=== PATIENT | female | born 1995 | race Caucasian/White ===

== ENCOUNTER 2018-02-26 04:56 | Day surgery (SDC) | payer OTHER ==
[2018-02-26 12:01] VITALS: BMI 23.0
[2018-02-26] MEDS ORDERED: DEXAMETHASONE SOD PHOSPHATE 4 MG/1 ML VIAL ONE (15:02)
[2018-02-26] MEDS ORDERED: LIDOCAINE HCL/PF 2% SDV 5ML VIAL ONE (15:02)
[2018-02-26] MEDS ORDERED: MIDAZOLAM HCL 2 MG/2 ML SINGLE DOSE VIAL ONE (15:02)
--- NOTE | 2018-02-26 15:36 | HP ---
History & Physical Update - History History: No Change - Physical Physical: No Change - Assessment Assessment: No Change - Plan Plan: No Change (H&P reviewed and consistent with 01/30/18 H&P Consent signed and witnessed all questions answered)
--- NOTE | 2018-02-26 15:36 | OP ---
Operative Note - Note: Operative Date: 02/26/18 Pre-Operative Diagnosis: 22yo P0 with abnormal bleeding, Uterine Polyp on the sonogram and Hymenal ring polyp Operation: Hysteroscopy, Myomectomy, Polypectomy, Hymenal ring repair Findings: 1. ~ 2cm fundal polyp 2. Fibrous tissue in the cervicofundal junction 3. Hymenal ring polyp - 3cm Post-Operative Diagnosis: Same as Pre-op Surgeon: Shayy Maria Anesthesia: MAC Specimens Removed: 1. Endometrial fibroid and polyp. 2. Hymenal ring polyp Estimated Blood Loss (mls): 5 Drains & Tubes with Location: Fluid deficit 100cc Drains, Volume Out (mls): 200 Fluid Volume Replaced (mls): 600 Operative Report Dictated: Yes
[2018-02-26] MEDS ORDERED: IBUPROFEN 800 MG/8 ML IJ IVPB PRN (15:37)
[2018-02-26] MEDS ORDERED: ONDANSETRON 4 MG/2 ML VIAL IVPUSH PRN (15:37)
[2018-02-26] MEDS ORDERED: IBUPROFEN 600 MG TABLET (FP) PO PRN (15:37)
[2018-02-26] MEDS ORDERED: oxyCODONE HCL 5 MG TABLET PO PRN ×2 (15:37→16:41)
[2018-02-26] MEDS ORDERED: ELECTROLYTE-148 SOLN 1,000 ML IV SCH (15:45)
[2018-02-26] MEDS ORDERED: KETOROLAC TROMETHAMINE 30 MG/1 ML VIAL ONE (16:30)
[2018-02-26] MEDS ORDERED: BACITRACIN 15 GM TUBE TOPICAL OINTMENT ONE (16:37)
[2018-02-26] MEDS ORDERED: LACTATED RINGERS SOLUTION 1,000 ML IV SCH (16:45)
[2018-02-26 19:36] VITALS: BP 109/64; PULSE 82; TEMP 98.7
--- NOTE | 2018-02-27 08:45 | OP ---
DATE OF OPERATION: 02/26/2018 PREOPERATIVE DIAGNOSIS: A 22-year-old, para 0, with abnormal bleeding, uterine polyp on sonogram, and hymenal ring polyp. OPERATION: Hysteroscopy, myomectomy, polypectomy, and hymenal ring repair. FINDINGS: A 2-cm fundal endometrial polyp, fibrous tissue in the cervical- fundal junction, hymenal ring 3-cm polyp. POSTOPERATIVE DIAGNOSIS: A 22-year-old, para 0, with abnormal bleeding, uterine polyp on sonogram, and hymenal ring polyp. SURGEON: Shayy Maria MD ANESTHESIA: MAC. ANESTHESIOLOGIST: Hamida Wright CRNA SPECIMENS REMOVED: 1. Endometrial fibroid and polyp. 2. Hymenal ring polyp. DESCRIPTION OF OPERATIVE PROCEDURE: After assuring informed consent, the patient was brought to the operating room where she was placed in dorsal lithotomy position. Perineum and vagina were prepped and draped in the sterile fashion. Anterior cervical lip was visualized with the use of Gardinre retractors, was grasped with single-toothed tenaculum and cervix was gradually dilated with increasing large DeLee dilators. The last size was 17 to accommodate a 6.3-mm hysteroscope, which was introduced into the uterine cavity without difficulty. Fundal 2-cm polyp, as described, was noted. The resection device was introduced through the hysteroscope and after some difficulty with distention, eventually the intrauterine contents were visualized. A resectoscope was activated and polyp was removed as well as the fibrous tissue resembling fibroid at the cervical-fundal junction was removed as well. Subsequently, the instrument was removed from the uterus and attention was paid to the hymenal ring, which had approximately 3-cm polypoid tissue, which was resected with a scalpel. The cut line was repaired with 3-0 Vicryl in the interrupted 3 sutures. Excellent hemostasis was achieved. All instruments and sponges were removed from the cervix and vagina. The patient was placed in the dorsal supine position. Estimated blood loss was 5 mL. Patient drained 200 mL of urine and received 600 mL of IV fluids and the fluid deficit during the procedure was 100 mL. The patient was brought to the recovery room in stable condition after sponge and instrument counts were correct x2. Sarah [id number] MTDMichaela
--- NOTE | 2018-02-28 19:26 | PATH ---
Surgical Pathology Report Patient Name: ANTONIETA ACOSTA [facility]. Rec. #: [id number] /Age/Gender: 1995 (Age: 22) / F Account: [id number] Location: [facility] SURGICAL Taken: 02/26/2018 Received: 02/27/2018 Reported: 02/28/2018 Physicians: Shayy Maria M.D. Specimen(s) Received A: ENDOMETRIAL POLYP/ ENDOMETRIAL FIBROID B: EXCESSIVE HYMENAL RING Clinical History Menorrhagia Final Diagnosis A. ENDOMETRIAL POLYPS/ENDOMETRIAL FIBROID, EXCISION: FRAGMENTS OF ENDOMETRIAL POLYP. FRAGMENTS OF SMOOTH MUSCLE BUNDLES, CONSISTENT WITH SUBMUCOSAL LEIOMYOMA. B. EXCESSIVE HYMENAL RING, EXCISION: POLYPOID FIBROVASCULAR TISSUE WITH OVERLYING SQUAMOUS EPITHELIUM, CONSISTENT WITH HYMENAL POLYP. Electronically Signed Dax Hudson M.D. Gross Description A. Received in formalin labeled "endometrial polyps/endometrial fibroid," is a 2.8 x 2.6 x 0.3 cm aggregate of bryant soft tissue fragments. The formalin is filtered and the specimen is entirely submitted in one cassette. B. Received in formalin labeled "excessive hymenal ring," is a 1.8 x 0.6 x 0.2 cm bryant, polypoid portion of skin. The base is inked blue and the specimen is submitted in toto in one cassette. /02/27/2018 saudi02/27/2018
== END 2018-02-26 19:15 | disposition home or self-care (01) ==
LOC: JASU-SURG 04:56
PROVIDERS: ATTEND Obstetrics & Gynecology
PROC: 0UJD8ZZ Inspection of Uterus and Cervix, Via Natural or Artificial Opening Endoscopic (ICD-10-PCS; 2018-02-26)
PROC: 0UBC7ZX Excision of Cervix, Via Natural or Artificial Opening, Diagnostic (ICD-10-PCS; principal; 2018-02-26 13:00)
PROC: 0UB97ZX Excision of Uterus, Via Natural or Artificial Opening, Diagnostic (ICD-10-PCS; 2018-02-26 13:00)
DX: N93.9 Abnormal uterine and vaginal bleeding, unspecified (principal); N84.0 Polyp of corpus uteri; N89.8 Other specified noninflammatory disorders of vagina
CPT/HCPCS: 88304-TC; 88305-TC; 94760

== ENCOUNTER 2020-05-11 13:34 | Emergency (ER) | payer OTHER ==
[2020-05-11 13:43] VITALS: BP 118/75; PULSE 75; TEMP 98.6; BMI 25.7
[2020-05-11] MEDS ORDERED: KETOROLAC TROMETHAMINE 30 MG/1 ML VIAL IM ONE (14:21)
[2020-05-11] MEDS ORDERED: KETOROLAC TROMETHAMINE 30 MG/1 ML VIAL ONE (14:23)
== END 2020-05-11 15:20 | disposition home or self-care (01) ==
LOC: JERFT 13:34
PROC: 3E023GC Introduction of Other Therapeutic Substance into Muscle, Percutaneous Approach (ICD-10-PCS; principal; 2020-05-11)
DX: S99.921A Unspecified injury of right foot, initial encounter (principal); W19.XXXA Unspecified fall, initial encounter
CPT/HCPCS: 73630-TC-RT-FY; 99284-25

== ENCOUNTER 2020-07-18 20:15 | Emergency (ER) | payer OTHER ==
[2020-07-18 20:28] VITALS: TEMP 99.1
[2020-07-18 20:33] VITALS: BMI 26.5
[2020-07-18 22:40] VITALS: BP 110/62; PULSE 88
== END 2020-07-18 22:39 | disposition home or self-care (01) ==
LOC: JER 20:15
DX: Z03.821 Encounter for observation for suspected ingested foreign body ruled out (principal)
CPT/HCPCS: 93005; 93010; 99283-25

== ENCOUNTER 2023-02-21 23:47 | Emergency (ER) | payer OTHER ==
[2023-02-21 23:52] VITALS: BP 100/67; PULSE 98; RESP 20; TEMP 99.4; BMI 26.5
[2023-02-22] MEDS ORDERED: ACETAMINOPHEN 500 MG TABLET (FP) PO ONE (00:27)
[2023-02-22] MEDS ORDERED: IBUPROFEN 600 MG TABLET (FP) PO ONE ×2 (00:53→01:25)
== END 2023-02-22 01:29 | disposition home or self-care (01) ==
LOC: JER 23:47
DX: M25.562 Pain in left knee (principal); S86.912A Strain of unspecified muscle(s) and tendon(s) at lower leg level, left leg, initial encounter; M76.30 Iliotibial band syndrome, unspecified leg; V00.838A Other accident with motorized mobility scooter, initial encounter; Y92.410 Unspecified street and highway as the place of occurrence of the external cause
CPT/HCPCS: 73562-TC-LT-FY; 99283-25

== ENCOUNTER 2024-08-17 14:03 | Emergency (ER) | payer OTHER ==
[2024-08-17 14:13] VITALS: TEMP 99.1; BMI 26.5
[2024-08-17 15:40] LABS: ABSOLUTE IMMATURE GRANULOCYTES 0.03 x10^3/uL (0.0-0.031); BASOPHILS # 0.06 x10^3/uL (0.01-0.08); EOSINOPHIL % 0.3 % (0.7-5.8); EOSINOPHILS # 0.03 x10^3/uL (0.04-0.36); MCHC 32.8 g/dl (32.2-35.5); MEAN CELL VOLUME 98.1 fl (79.4-94.8); MEAN PLT VOLUME 8.7 fl (9.4-12.3); MONOCYTE # 0.64 x10^3/uL (0.24-0.86); MONOCYTE % 5.6 % (4.7-12.5); RDW 12.3 % (12.1-16.5)
[2024-08-17 15:44] LABS: EPI CELLS 3 /uL (0-25.1); HYALINE CASTS 1 /uL (0-3.1); URINE APPEARANCE CLEAR; URINE BACTERIA 19 /uL (0-1359); URINE BILIRUBIN NEGATIVE (NEGATIVE); URINE COLOR YELLOW; URINE GLUCOSE (UA) NEGATIVE (NEGATIVE); URINE KETONE TRACE (NEGATIVE); URINE LEUK ESTERASE NEGATIVE (NEGATIVE); URINE NITRITE NEGATIVE (NEGATIVE); URINE PROTEIN NEGATIVE (NEGATIVE); URINE RBC 12 /uL (0-23.9); URINE UROBILINOGEN 0.2 mg/dL (0.2-1.0); URINE WBC 15 /uL (0-25.8)
[2024-08-17 15:46] LABS: HCG,QUALITATIVE URINE Negative
[2024-08-17 16:04] LABS: GLUCOSE,RANDOM 85.0 mg/dL (74-106)
[2024-08-17 16:05] LABS: CO2 22.0 mmol/L (21-32)
[2024-08-17 16:08] LABS: CREATININE 0.5 mg/dL (0.55-1.3); SGOT/AST 14.0 U/L (15-37); SGPT/ALT 22.0 U/L (13-61)
[2024-08-17 16:10] LABS: TOT PROT 6.8 g/dl (6.4-8.2)
[2024-08-17 16:11] LABS: ALK PHOS 74.0 U/L (45-117)
[2024-08-17] MEDS: SODIUM CHLORIDE 0.9% 1000 ML INFUS.BAG IV ONE (16:19)
[2024-08-17 16:53] LABS: HCV DIAGNOSTIC IN-HOUSE W/RFLX NON-REACTIVE (NONREACTIVE); HIV INTERPRETATION NEGATIVE (NEGATIVE)
[2024-08-17 20:23] VITALS: BP 110/76; PULSE 83; RESP 16
== END 2024-08-17 20:23 | disposition home or self-care (01) ==
LOC: JER 14:03
DX: R31.9 Hematuria, unspecified (principal); R10.31 Right lower quadrant pain; M54.9 Dorsalgia, unspecified
CPT/HCPCS: 36415; 76830-TC; 80053; 81003; 84484; 84703; 85025; 86803; 87389; 93005; 93010; 99285-25

== ENCOUNTER 2024-08-19 01:39 | Emergency (ER) | payer OTHER ==
[2024-08-19 01:47] VITALS: RESP 20; TEMP 98.1; BMI 26.5
[2024-08-19 03:34] LABS: ABSOLUTE IMMATURE GRANULOCYTES 0.03 x10^3/uL (0.0-0.031); BASOPHILS # 0.05 x10^3/uL (0.01-0.08); EOSINOPHIL % 0.4 % (0.7-5.8); EOSINOPHILS # 0.05 x10^3/uL (0.04-0.36); MCHC 33.4 g/dl (32.2-35.5); MEAN CELL VOLUME 98.4 fl (79.4-94.8); MEAN PLT VOLUME 8.6 fl (9.4-12.3); MONOCYTE # 0.76 x10^3/uL (0.24-0.86); MONOCYTE % 5.9 % (4.7-12.5); RDW 12.4 % (12.1-16.5)
[2024-08-19 04:05] LABS: CO2 22.0 mmol/L (21-32); EPI CELLS 33 /uL (0-25.1); GLUCOSE,RANDOM 135.0 mg/dL (74-106); HYALINE CASTS 13 /uL (0-3.1); URINE APPEARANCE TURBID; URINE BILIRUBIN 2+ (NEGATIVE); URINE COLOR RED; URINE GLUCOSE (UA) NEGATIVE (NEGATIVE); URINE KETONE NEGATIVE (NEGATIVE); URINE LEUK ESTERASE 1+ (NEGATIVE); URINE NITRITE POSITIVE (NEGATIVE); URINE PROTEIN 2+ (NEGATIVE); URINE UROBILINOGEN 0.2 mg/dL (0.2-1.0); URINE WBC 52 /uL (0-25.8)
[2024-08-19 04:08] LABS: CREATININE 0.6 mg/dL (0.55-1.3); SGOT/AST 10.0 U/L (15-37); SGPT/ALT 22.0 U/L (13-61)
[2024-08-19 04:10] LABS: TOT PROT 6.9 g/dl (6.4-8.2)
[2024-08-19 04:11] LABS: ALK PHOS 83.0 U/L (45-117)
[2024-08-19 05:15] LABS: URINE RBC 49616.7 /uL (0-23.9)
[2024-08-19 05:16] LABS: YEAST NONE SEEN (NEGATIVE)
[2024-08-19 06:14] VITALS: BP 122/75; PULSE 85
== END 2024-08-19 06:14 | disposition home or self-care (01) ==
LOC: JER 01:39
DX: R31.9 Hematuria, unspecified (principal); R10.31 Right lower quadrant pain; N93.9 Abnormal uterine and vaginal bleeding, unspecified
CPT/HCPCS: 36415; 74177-TC; 80053; 81003; 84703; 85025; 87086; 99285-25; Q9967